=== PATIENT | male | born 1950 ===

== ENCOUNTER 2024-11-03 06:00 | Outpatient (CLI) | payer OTHER ==
[~2024-11-03] VITALS: Ht 170.2 cm; Wt 102.1 kg
[2024-11-03] MEDS ORDERED: GRALISE600 MG PO (09:13)
[2024-11-03] MEDS ORDERED: COZAAR25 MG PO (09:13)
[2024-11-03] MEDS ORDERED: TENORMIN25 MG PO (09:14)
[2024-11-03] MEDS ORDERED: LANTUS SOL100 UNIT/1 (09:14)
[2024-11-03] MEDS ORDERED: HUMALOG100 UNIT/2 (09:14)
[2024-11-03] MEDS ORDERED: FUROSEMIDE20 MG PO (09:14)
[2024-11-03] MEDS ORDERED: HIGH POTENCY I134 MG PO (09:15)
[2024-11-03 09:16] VITALS: BP 123/73
[2024-11-03 09:36] LABS: PH,URINE 5.5 (5.0-8.0); URINE APPEARANCE Clear; URINE BILIRRUBIN Negative (NEGATIVE); URINE BLOOD Small; URINE COLOR Yellow; URINE KETONE Negative (NEGATIVE); URINE LEUKOCYTE Negative; URINE NITRATE Negative; URINE UROBILINOGEN 0.2 E.U./dl
[2024-11-03 09:40] LABS: HEMATOCRIT 38.9 % (39.0-48.0); MEAN CELL VOLUME 91.3 fL (80.0-100.00); MEAN CORPUSCULAR HEMOGLOBIN 30.5 pg (27.00-32.0); MEAN CORPUSCULAR HGB CONC 33.5 g/dl (32.0-36.0); PLATELET COUNT 192 K/uL (150-450); RED BLOOD COUNT 4.27 M/uL (4.00-6.00); RED CELL DISTRIBUTION WIDTH 15.1 % (11.5-14.5)
[2024-11-03 09:41] LABS: URINE BACTERIA 52.6 uL (0.0-1933); URINE CAST 8.24 uL (0.0-1.40); URINE WBC 20.5 uL (0.0-23.2)
[2024-11-03 10:01] LABS: INR 1.06; PARTIAL THROMBOPLASTIN TIME 26.2 SECONDS (22.0-34.0); PROTHROMBIN TIME 11.5 SECONDS (9.0-11.5)
[2024-11-03 10:04] LABS: CALCIUM 10.1 mg/dL (8.5-10.1); CREATININE SERUM 1.61 mg/dL (0.70-1.30); GFR 41.93; POTASSIUM 5.08 mEq/L (3.5-5.1)
[2024-11-03 10:37] LABS: URINE GLUCOSE >=1000 MG/DL (NEGATIVE); URINE PROTEIN 100 (NEGATIVE); URINE RBC 0.8 uL (0.0-20.8)
[2024-11-03 10:38] LABS: URINE CRYSTALS FEW /HPF
[2024-11-03] MEDS ORDERED: XIGDUO XR 10 M1 EAC1 PO (12:19)
== END 2024-11-03 06:01 | disposition home or self-care (01) ==
LOC: RAD 06:00 → ADM 07:15 → CIR.AMB 11-10 07:15 → EDSTATUS 11-10 07:15 → CIR.AMB 11-10 09:30
PROVIDERS: ATTEND Surgery Surgery of the Hand
DX: M72.0 Palmar fascial fibromatosis [Dupuytren] (principal); Z01.812 Encounter for preprocedural laboratory examination; D68.9 Coagulation defect, unspecified; Z01.818 Encounter for other preprocedural examination; Z01.810 Encounter for preprocedural cardiovascular examination